=== PATIENT | male | born 1985 | race Caucasian/White ===

== ENCOUNTER 2023-07-14 13:10 | Inpatient (IN) | payer BC ==
[~2023-07-14] VITALS: Ht 175.3 cm; Wt 74.0 kg
[2023-07-14 20:55] VITALS: PULSE 72; RESP 18; O2SAT 99
[2023-07-14] MEDS: SODIUM CHLORIDE 0.9% 1,000 ML IV SCH (22:15)
[2023-07-14 22:48] LABS: Basophils # (auto) 0 10 ^3/uL (0-0.2); Basophils % (auto) 0.3 % (0.0-2.0); Eosinophils # (auto) 0 10 ^3/uL (0-0.8); Hematocrit 45.4 % (41.0-53.0); Hemoglobin 15.6 g/dL (13.5-17.5); Lymphocytes # (auto) 0.8 10 ^3/uL (0.4-5.4); Lymphocytes % (auto) 10.4 % (10.0-50.0); Mean Corpuscular Hgb Conc. 34.5 g/dL (32.0-36.0); Mean Corpuscular Volume 92.9 fL (80.0-100.0); Monocytes # (auto) 0.7 10 ^3/uL (0-1.3); Monocytes % (auto) 8.9 % (0.0-12.0); Neutrophils # (auto) 6.2 10 ^3/uL (1.6-8.6); Neutrophils % (auto) 80.4 % (37.0-80.0); Nucleated Red Blood Cells % 0.3 %; Red Blood Cells 4.89 10^6/uL (4.5-5.90); Red Cell Distribution Width 12.4 % (11.8-14.3); White Blood Cell 7.8 10^3/uL (4.4-10.8)
[2023-07-14] MEDS: MORPHINE SULFATE 4 MG/ML SYR/VIAL IM ONE (23:00)
[2023-07-14 23:05] LABS: INR 1.1 (0.9-1.15); Partial Thromboplastin Time 27.1 SEC (24.5-34.5); Prothrombin Time 11.5 sec (9.3-11.8)
[2023-07-14 23:12] LABS: Alanine Aminotransferase 43 U/L (7-40); Albumin 4.4 g/dL (3.2-4.8); Alkaline Phosphatase 52 U/L (46-116); Anion Gap 9 (5-15); Aspartate Aminotransferase 34 U/L (13-40); Blood Urea Nitrogen 16 mg/dL (9-23); Calcium 9.8 mg/dL (8.5-10.1); Carbon Dioxide 27 mmol/L (20-30); Chloride 105 mmol/L (98-107); Glucose 118 mg/dL (74-106); Potassium 3.9 mmol/L (3.5-5.1); Sodium 141 mmol/L (136-145)
[2023-07-14 23:13] LABS: Bilirubin, Total 0.9 mg/dL (0.2-1.0); Total Protein 6.4 g/dL (5.7-8.2)
[2023-07-14] MEDS ORDERED: NITROGLYCERIN 0.4 MG SL TAB SL PRN (23:45)
[2023-07-14] MEDS ORDERED: MORPHINE SULFATE INJ 2 MG/ml SYRG IV PRN (23:45)
[2023-07-15] VITALS (7 sets, daily range): BP systolic 115–136; BP diastolic 65–74; PULSE 61–81; RESP 18–20; TEMP 36.8; O2SAT 95–100
[2023-07-15] MEDS: ACETAMINOPHEN 325 MG TAB PO PRN (01:55)
[2023-07-15 04:52] LABS: Basophils # (auto) 0 10 ^3/uL (0-0.2); Basophils % (auto) 0.3 % (0.0-2.0); Eosinophils # (auto) 0 10 ^3/uL (0-0.8); Eosinophils % (auto) 0.3 % (0.0-7.0); Hematocrit 43.9 % (41.0-53.0); Hemoglobin 15.2 g/dL (13.5-17.5); Lymphocytes # (auto) 0.9 10 ^3/uL (0.4-5.4); Lymphocytes % (auto) 12.5 % (10.0-50.0); Mean Corpuscular Hemoglobin 32.3 pg (28.0-32.0); Mean Corpuscular Hgb Conc. 34.6 g/dL (32.0-36.0); Mean Corpuscular Volume 93.4 fL (80.0-100.0); Monocytes # (auto) 0.7 10 ^3/uL (0-1.3); Monocytes % (auto) 9.5 % (0.0-12.0); Neutrophils # (auto) 5.4 10 ^3/uL (1.6-8.6); Neutrophils % (auto) 77.4 % (37.0-80.0); Nucleated Red Blood Cells % 0.2 %; Red Cell Distribution Width 12.2 % (11.8-14.3)
[2023-07-15 05:06] LABS: Alanine Aminotransferase 35 U/L (7-40); Alkaline Phosphatase 49 U/L (46-116); Anion Gap 9 (5-15); Aspartate Aminotransferase 26 U/L (13-40); BUN/Creatinine Ratio 16.3 (10.0-20.0); Blood Urea Nitrogen 15 mg/dL (9-23); Calcium 9.2 mg/dL (8.5-10.1); Carbon Dioxide 25 mmol/L (20-30); Chloride 106 mmol/L (98-107); Glucose 117 mg/dL (74-106); Potassium 3.8 mmol/L (3.5-5.1); Sodium 140 mmol/L (136-145); Total Protein 6.3 g/dL (5.7-8.2)
[2023-07-15] MEDS: ONDANSETRON HCL 4 MG/2 ML VIAL IV PRN (08:47)
[2023-07-15] MEDS: MORPHINE SULFATE INJ 2 MG/ml SYRG IV PRN (08:50)
[2023-07-15] MEDS ORDERED: INDO50CA82 PO (09:51)
[2023-07-15] MEDS: ENOXAPARIN SOD 40 MG/0.4 ML SYRINGE SC SCH (10:00)
[2023-07-15] MEDS ORDERED: LORA-622 PO (10:16)
[2023-07-15] MEDS: ceFAZolin 2 GM/D5W50ml 50 ML IV ONE (11:39)
[2023-07-15] MEDS: CELECOXIB 100 MG CAP ONE (11:53)
[2023-07-15] MEDS: ACETAMINOPHEN IV 100 ML IV ONE (11:53)
[2023-07-15] MEDS: GABAPENTIN 400 MG CAP ONE (11:53)
[2023-07-15] MEDS ORDERED: LIDOCAINE 1% INJ PF 5ML AMP ONE (12:00)
[2023-07-15] MEDS ORDERED: KETOROLAC TROMETH 30 MG/ML 1ML VIAL ONE (12:00)
[2023-07-15] MEDS: ACETAMINOPHEN IV 1000 MG/100ML (10MG/ML) IV ONE (12:00)
[2023-07-15] MEDS: CELECOXIB 100 MG CAP PO ONE (12:00)
[2023-07-15] MEDS ORDERED: ONDANSETRON HCL 4 MG/2 ML VIAL ONE (12:00)
[2023-07-15] MEDS: GABAPENTIN 400 MG CAP PO ONE (12:00)
[2023-07-15] MEDS ORDERED: DexAMETHasone SOD PHOS 10MG/1ML VIAL INJ ONE ×2 (12:00→12:04)
[2023-07-15] MEDS ORDERED: PROPOFOL 10 MG/ML 20 ML IV ONE ×3 (12:01→12:36)
[2023-07-15] MEDS ORDERED: KETAMINE 50mg/ML 1ml syringe ONE (12:01)
[2023-07-15] MEDS ORDERED: GLYCOPYRROLATE 0.2 MG/ML 1ML VIAL ONE (12:01)
[2023-07-15 12:34] LABS: Urine Bacteria None Seen /hpf (None Seen)
[2023-07-15] MEDS ORDERED: ePHEDrine SULFATE 50 MG/ML AMP ONE (12:48)
[2023-07-15] MEDS: BUPIVACAINE HCL 0.25% P/F 10 ML VIAL ONE (13:00)
[2023-07-15 13:16] LABS: Urine Blood Negative /uL (Negative); Urine Clarity Clear (Clear); Urine Color Light-Yellow (Yellow); Urine Protein, UAD Negative (Negative); Urine Specific Gravity 1.016 (1.001-1.035); Urine Urobilinogen Normal (Negative); Urine WBC <1 /hpf (0 - 3); Urine pH 7.5 (5.0-9.0)
[2023-07-15] MEDS: MEPERIDINE HCL (25 MG/ML) 1ML VIAL ONE (13:47)
[2023-07-15] MEDS: MEPERIDINE HCL (25 MG/ML) 1ML VIAL IV ONE (13:49)
[2023-07-15 16:54] LABS: Amphetamine Screen, Urine Neg (NEGATIVE); Barbiturate Scree,Urine Neg (NEGATIVE); Benzodiazephine Screen, Urine Neg (NEGATIVE); Cannabinoid Screen, Urine Pos (NEGATIVE); Cocaine Screen, Urine Neg (NEGATIVE); Opiate Scree,Urine Neg (NEGATIVE); Phencyclidine Screen, Urine Neg (NEGATIVE)
[2023-07-15] MEDS: ceFAZolin 1GM/50ML 50 ML IV SCH (22:00)
[2023-07-16] VITALS (8 sets, daily range): BP systolic 111–142; BP diastolic 72–89; PULSE 64–92; RESP 14–20; TEMP 97.8–98.8; O2SAT 95–100
[2023-07-16] MEDS: HYDROcodone-ACET 5/325MG TAB PO PRN (02:43)
[2023-07-16] MEDS: DOCUSATE SOD 100 MG CAP PO PRN (14:39)
[2023-07-17] VITALS (7 sets, daily range): BP systolic 108–135; BP diastolic 76–85; PULSE 57–72; RESP 14–18; TEMP 97.1–98.4; O2SAT 96–98
[2023-07-18 01:00] VITALS: BP 113/80; PULSE 57; RESP 16; TEMP 98.4; O2SAT 97
[2023-07-18 05:00] VITALS: BP 120/85; PULSE 62; RESP 18; TEMP 98.3; O2SAT 99
[2023-07-18 08:03] VITALS: BP 129/84; PULSE 59; RESP 15; TEMP 98.9; O2SAT 98
[2023-07-18] MEDS ORDERED: APIX2.5T PO (09:30)
[2023-07-18 11:01] VITALS: TEMP 37.2
[2023-07-18 11:24] VITALS: BP 122/74; PULSE 83; RESP 17; TEMP 97.7; O2SAT 96
[2023-07-18] MEDS ORDERED: TRAM50TA2 PO (11:25)
[2023-07-18] MEDS ORDERED: TRAM-626 PO (11:26)
[2023-07-18] MEDS ORDERED: TRAM-711 PO (11:26)
[2023-07-18 16:30] VITALS: BP 139/85; PULSE 76; RESP 16; TEMP 98.7; O2SAT 96
== END 2023-07-18 17:38 | disposition home or self-care (01) | DRG 482 ==
LOC: ER 13:10 → TELE 23:32 → TELE-E-ADS 07-15 09:30 → TELE-WESTW 07-15 16:23 → WEST WING 07-15 21:14
PROVIDERS: ADMIT Internal Medicine; ATTEND Internal Medicine
PROC: 2W3CX1Z Immobilization of Right Lower Arm using Splint (ICD-10-PCS; 2023-07-15)
PROC: 0QS604Z Reposition Right Upper Femur with Internal Fixation Device, Open Approach (ICD-10-PCS; principal; 2023-07-15 12:10)
DX: S72.141A Displaced intertrochanteric fracture of right femur, initial encounter for closed fracture (principal); S52.131A Displaced fracture of neck of right radius, initial encounter for closed fracture; W18.39XA Other fall on same level, initial encounter; Y93.89 Activity, other specified; Y92.89 Other specified places as the place of occurrence of the external cause; Y99.8 Other external cause status; S52.124A Nondisplaced fracture of head of right radius, initial encounter for closed fracture
CPT/HCPCS: 29105; 36415; 71045; 71101; 73080; 73110; 73502; 73700; 76000; 80053; 80307; 81001; 85025; 85610; 85730; 86850; 86900; 86901; 97110; 97116; 97163; 97530; A4565; C1713; G0378; J0131; J1100; J1885; J2405; J2704; J3490